=== PATIENT | female | born 1930 | race Caucasian/White ===

== ENCOUNTER → 2017-12-06 | Day surgery (SDC) | payer OTHER ==
[~2017-12-06] MED LIST: DEXAMETHASONE SOD PHOS 4 MG/ML VIAL ONE; EPINEPHrine HCL (1:1000) 1 MG/ML VIAL ONE; LACTATED RINGER'S 1000 ML INJ 1,000 ML ONE; MOXIFLOXACIN 0.5% OPHT SOLN 3 ML BTL ONE; ONDANSETRON HCL 4 MG/2 ML VIAL IV PUSH ONE; PHENYLEPHRINE HCL 10% OPTH SOLN 5 ML BTL ONE; PROPOFOL 200 MG/20 ML AMP IV ONE; TETRACAINE 0.5% OPTH SOLN 4 ML BTL ONE; TOBRAMYCIN/DEXAMETHASONE OPTH OINT 3.5 GM TUBE ONE; TRIAMCINOLONE ACETONIDE 40 MG/ML VIAL ONE; ceFAZolin INJ 1,000 MG VIAL ONE; prednisoLONE ACETATE 1% OPHT SUSP 5 ML BTL ONE
--- NOTE | 2017-12-07 18:07 | MP ---
cc: Gianfranco Easton MD, Karl E MD DATE OF OPERATION: 12/06/2017 PREOPERATIVE DIAGNOSIS: Epiretinal membrane, vascular retinopathy, left eye. POSTOPERATIVE DIAGNOSIS: Epiretinal membrane, vascular retinopathy, left eye. PROCEDURE: Pars vitrectomy, removal of epiretinal membrane/internal limiting membrane, endolaser, air fluid exchange, insertion of 10% SF6 gas, left eye. ANESTHESIA: Dr. Parsons. General. ESTIMATED BLOOD LOSS: Less than 1 mL COMPLICATIONS: None. 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 PROCEDURE NOTE: After informed consent was obtained, the patient was brought to the operating room. General anesthesia was established. The left eye was prepped and draped in sterile fashion with Betadine in the conjunctival fornix. A 3 port pars vitrectomy was set up with self-retaining infusion cannula. The core vitreous was evacuated and posterior vitreous traction was relieved. The ERM/ILM complex was highlighted with ICG and removed with ILM forceps. 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 This area was treated with endolaser. Scleral depression examination revealed no untreated holes, tears or detachments. Air fluid exchange was carried out and 2% SF6 gas was instilled. Trocars removed and sclerotomies closed. The subconjunctival injection of Ancef and dexamethasone were given. Eye was patched with Tobramycin ointment. The patient was brought to recovery room in stable condition and to continue to followup at [facility] for her postoperative care. MD SUMI Olsen/ , 05:23 PM , 06:06 PM
== END | disposition home or self-care (01) ==
LOC: ESDC 05:59
PROVIDERS: ATTEND Ophthalmology
DX: H35.372 Puckering of macula, left eye (principal); H35.00 Unspecified background retinopathy
CPT/HCPCS: 00145; 67042; J0171; J0690; J1100; J2405; J3010; J7120; J3301